=== PATIENT | female | born 1940 | race Caucasian/White ===

== ENCOUNTER 2020-03-19 12:05 | Outpatient (CLI) | payer OTHER ==
[~2020-03-19 12:05] MED LIST: KETO10TA2 PO
== END 2020-03-19 12:36 | disposition home or self-care (01) ==
LOC: PPH VACUNA 12:05
PROVIDERS: ATTEND Emergency Medicine Pediatric Emergency Medicine
DX: Z23 Encounter for immunization (principal)

== ENCOUNTER → 2020-04-09 07:00 | Outpatient (CLI) | payer OTHER | END | disposition home or self-care (01) | LOC: PPH VACUNA 07:00 | PROVIDERS: ATTEND Emergency Medicine Pediatric Emergency Medicine | DX: Z23 Encounter for immunization (principal) ==

== ENCOUNTER 2020-10-09 11:12 | Outpatient (CLI) | payer OTHER | END 2020-10-09 11:21 | disposition home or self-care (01) | LOC: RAD 11:12 | PROVIDERS: ATTEND Internal Medicine Sports Medicine | DX: R06.02 Shortness of breath (principal) ==

== ENCOUNTER 2020-12-18 08:00 | Outpatient (CLI) | payer OTHER | END 2020-12-18 08:30 | disposition home or self-care (01) | LOC: PPH VACUNA 08:00 | PROVIDERS: ATTEND Emergency Medicine Pediatric Emergency Medicine | DX: Z23 Encounter for immunization (principal) ==

== ENCOUNTER → 2021-08-25 10:15 | Outpatient (CLI) | payer OTHER | END | disposition home or self-care (01) | LOC: LAB 10:15 | PROVIDERS: ATTEND Internal Medicine Sports Medicine | DX: E55.9 Vitamin D deficiency, unspecified (principal); D64.9 Anemia, unspecified; E11.9 Type 2 diabetes mellitus without complications; E78.2 Mixed hyperlipidemia; I10 Essential (primary) hypertension; E03.8 Other specified hypothyroidism; N30.00 Acute cystitis without hematuria; E55.0 Rickets, active ==

== ENCOUNTER → 2021-12-06 09:02 | Outpatient (CLI) | payer OTHER | END | disposition home or self-care (01) | LOC: LAB 09:02 | PROVIDERS: ATTEND Internal Medicine Sports Medicine | DX: E11.9 Type 2 diabetes mellitus without complications (principal); E78.1 Pure hyperglyceridemia ==

== ENCOUNTER → 2022-02-18 10:54 | Outpatient (CLI) | payer OTHER | END | disposition home or self-care (01) | LOC: LAB 10:54 | PROVIDERS: ATTEND Internal Medicine Sports Medicine | DX: D64.9 Anemia, unspecified (principal); R05.9 Cough, unspecified; R06.02 Shortness of breath; R50.9 Fever, unspecified; J20.8 Acute bronchitis due to other specified organisms; J12.89 Other viral pneumonia ==

== ENCOUNTER 2022-02-23 13:24 | Outpatient (CLI) | payer OTHER | END 2022-02-23 13:34 | disposition home or self-care (01) | LOC: PPH VACUNA 13:24 | PROVIDERS: ATTEND Emergency Medicine Pediatric Emergency Medicine | DX: Z23 Encounter for immunization (principal) ==

== ENCOUNTER 2022-07-10 08:54 | Outpatient (CLI) | payer OTHER | END 2022-07-10 09:28 | disposition home or self-care (01) | LOC: SONOGRAMA 08:54 | PROVIDERS: ATTEND Family Medicine | DX: R10.10 Upper abdominal pain, unspecified (principal) ==